=== PATIENT | female | born 1965 | race Caucasian/White ===

== ENCOUNTER 2016-08-21 16:35 | Inpatient (IN) | payer OTHER ==
[~2016-08-21] VITALS: Ht 165.1 cm; Wt 80.8 kg
[~2016-08-21 16:35] MED LIST: BENZONATATE100 MG PO; HYDROCHLOROTHIA25 MG PO; IMITREX50 MG PO; IRBESARTAN300 MG PO; NORCO1 TA2 PO; TIROSINT137 MCG PO; VITAMIN B COMPLE1 PO
[2016-08-24] VITALS (9 sets, daily range): BP systolic 153–192; BP diastolic 83–101
--- NOTE | 2016-08-24 15:08 | OPERATIVE REPORT ---
DATE OF SURGERY: 08/24/2016 SURGEON: Luis Alberto Francisco MD BOXING AND PRESSING SUPERVISOR: Ivan Roche III, MD PREOPERATIVE DIAGNOSIS: 1. Colonic polyposis POSTOPERATIVE DIAGNOSIS: 1. Colonic polyposis PROCEDURE PERFORMED: 1. Laparoscopic subtotal colectomy with ileocolostomy ANESTHESIA: General. INDICATIONS: The patient is a 50-year-old woman who has a daughter with familial adenomatous polyposis as well as a brother. The patient had a colonoscopy on , which demonstrated uncountable polyps, isolated to the right and transverse colon, with only a couple isolated ones in the rectum and a long segment of normal rectum. SURGICAL TECHNIQUE: The patient was taken to the operating room, where a general anesthetic was administered and the patient prepped and draped in the usual sterile fashion in low lithotomy position. Sequential compression devices, IV antibiotics, and a local anesthetic of 0.5% Marcaine at the incision sites were used. The patient received an orogastric tube and a Zuniga catheter. She underwent a mechanical bowel preparation prior to coming to surgery. An intraumbilical incision was made and a Veress needle used to insufflate. A 10 mm cannula was passed and visualization was obtained. A 10 mm trocar was placed in the lower midline and a 5 mm in the upper midline. Eventually, there was a 10 mm was placed in the right and another 5 mm placed to the left. The inspection was carried out, which demonstrated no evidence of neoplastic disease. The colon itself grossly looked normal. The right colon was mobilized, including the appendix, along its peritoneal reflection and moved medially. The hepatic flexure was taken down, and the omentum was then detached from the leading surface of the transverse colon and preserved with its blood supply from above. The hepatic flexure was taken down and the left colon was mobilized. Once the colon was completely mobilized, the resection was carried out. A stapler was placed across the ileocecal junction and used to divide the colon. The mesocolon was taken down starting from the right side and following across the transverse and down the descending. The Thunderbeat device was used for this entire resection. A site was selected proximal to the sacral promontory, just at the maximum reach of the dilator and stapler device. The YURI was used to divide here, and the specimen was removed from the abdominal cavity. The umbilical trocar site was enlarged a little bit to allow extraction of the specimen. The end of the terminal ileum was also pulled up. A pursestring device was placed and a 4-0 Maxon pursestring was placed. The staple line was cut away, and a 25 mm EEA anvil was tied in. The small bowel end was returned to the abdominal cavity. The midline fascia was closed using running 0 Maxon suture and the abdomen re-insufflated. Sizers were passed from below and just reached the staple line. A 25 mm EEA anastomosis was carried out without incident. Two intact donuts of tissue were extracted, and insufflation under irrigation fluid demonstrated no evidence of leakage. The entire abdomen was irrigated and suctioned clean. Hemostasis was found to be complete. Additional Marcaine was instilled, gas was evacuated, and the skin sites closed with either running or interrupted subcuticular 4-0 Vicryl sutures. Steri-Strips and dressings were applied at all sites, and the patient left in stable condition. No intraoperative complications were encountered.
[2016-08-25 02:42] VITALS: BP 136/64
[2016-08-25 06:39] VITALS: BP 111/51
--- NOTE | 2016-08-25 07:55 | Progress Note ---
Subjective General Post Operative Day 1 subtotal colectomy Pt. is sore but reports no other new problem. No flatus or stool yet, some burping but no nausea or vomiting. Physical Exam Vital Signs / I&Os Vital Signs Date Time Temp Pulse Resp B/P Pulse O2 O2 Flow FiO2 Ox Delivery Rate 08/25 0747 68 22 98 2.0 05/02 0639 98.4 71 18 111/51 97 Nasal 2.0 Cannula 05/02 0609 77 21 97 2.0 05/02 0415 71 22 97 2.0 05/02 0242 98.8 71 16 136/64 97 Nasal 2.0 Cannula 05/02 0120 72 20 96 2.0 05/01 2227 Nasal 2.0 Cannula 05/01 2220 70 157/84 05/01 2208 93 14 97 2.0 05/01 1913 100.2 76 16 183/93 97 Nasal 2.0 Cannula 05/01 1900 94 16 96 2.0 05/01 1820 98.4 82 28 153/92 96 Nasal 2.0 Cannula 05/01 1740 99.7 82 14 166/83 97 Nasal 2.0 Cannula 05/01 1711 99.0 87 14 166/88 97 Nasal 2.0 Cannula 05/01 1655 99.3 92 14 180/90 97 Nasal 2.0 Cannula 05/01 1642 90 12 97 2.0 05/01 1641 98.8 96 16 192/100 96 Nasal 2.0 Cannula 05/01 1625 98.4 96 16 180/101 96 Nasal 2.0 Cannula 05/01 1610 99.3 96 16 183/96 97 Nasal 2.0 Cannula 05/01 1550 98.4 96 15 168/76 98 Nasal 2.0 Cannula 05/01 1540 98.4 95 14 176/94 98 Nasal 2.0 Cannula 05/01 1530 98.8 90 12 168/80 97 Nasal 2.0 Cannula 05/01 1525 94 15 168/76 98 Nasal 2.0 Cannula 05/01 1520 92 15 173/80 98 Nasal 2.0 Cannula 05/01 1515 100 16 174/86 98 Nasal 2.0 Cannula 05/01 1510 94 16 201/126 98 Nasal 2.0 Cannula 05/01 1505 92 16 186/88 98 Nasal 2.0 Cannula 05/01 1500 94 18 187/81 98 Nasal 2.0 Cannula 05/01 1455 95 17 181/82 98 Nasal 2.0 Cannula 05 1450 104 11 193/99 100 Nasal 2.0 Cannula 05/ 1445 94 17 183/89 98 Nasal 2.0 Cannula 05/ 1440 94 22 183/88 98 Nasal 2.0 Cannula 05/ 1435 99 20 190/87 98 Nasal 2.0 Cannula 05/ 1430 94 14 201/85 98 Nasal 2.0 Cannula 05/ 1425 106 22 178/92 98 Nasal 2.0 Cannula 05/ 1420 97 19 193/94 98 Nasal 2.0 Cannula 05/ 1415 97 18 192/86 98 Nasal 2.0 Cannula 08/24 1410 102 19 181/88 98 Nasal 2.0 Cannula 08/24 1405 96 19 177/93 98 Nasal 3.0 Cannula 08/24 1400 103 17 177/82 100 Nasal 3.0 Cannula 08/24 1356 97.5 104 16 152/110 97 I&O 08/24 0800 05/ 1600 05/02 0000 Intake Total 1550 0 Output Total 400 1400 Balance 1150 -1400 General Appearance Alert, Oriented X3, Cooperative Lungs Clear to auscultation, Normal air movement Abdomen bowel sounds present but hypoactive, non distended, dressing intact, no erythema Assessment and Plan Problem List 1. S/P laparoscopic colectomy Plan sips PO, ambulate, inspirometry
[2016-08-25 11:09] VITALS: BP 116/76
[2016-08-25 15:30] VITALS: BP 115/64
[2016-08-25 18:56] VITALS: BP 131/53
[2016-08-25 22:33] VITALS: BP 137/60
[2016-08-26 02:30] VITALS: BP 137/658
[2016-08-26 06:12] VITALS: BP 118/65
--- NOTE | 2016-08-26 08:50 | Progress Note ---
Subjective General POD 2 laparo subtotal colectomy Pt. reports no problems, not passing stool or flatus, she is burping but no N and V. She is ambulating and taking a few sips of clear liquids. Physical Exam Vital Signs / I&Os Vital Signs Date Time Temp Pulse Resp B/P Pulse O2 O2 Flow FiO2 Ox Delivery Rate 08/26 0612 99.3 81 14 118/65 95 Room Air 08/26 0230 99.0 78 13 137/658 97 Room Air 08/25 2233 99.0 76 13 137/60 97 Room Air 08/25 2048 Room Air 08/25 1856 98.8 74 18 131/53 94 / 1530 98.6 72 18 115/64 95 Room Air 08/25 1109 98.8 71 18 116/76 96 Room Air I&O 08/25 0800 / 1600 / 0000 Intake Total 6504 021 7523 Output Total 1000 1725 1125 Balance 350 -1485 348 General Appearance Alert, Oriented X3, Cooperative Lungs Clear to auscultation Abdomen Normal bowel sounds, No tenderness, mild tympany and distension Assessment and Plan Problem List 1. S/P laparoscopic colectomy 2. Postoperative ileus Plan Will wait for flatus to advance diet, otherwise continue to ambulated and minimize narcotics.
--- NOTE | 2016-08-26 08:50 | Progress Note ---
Subjective General POD 2 laparo subtotal colectomy Pt. reports no problems, not passing stool or flatus, she is burping but no N and V. She is ambulating and taking a few sips of clear liquids. Physical Exam Vital Signs / I&Os Vital Signs Date Time Temp Pulse Resp B/P Pulse O2 O2 Flow FiO2 Ox Delivery Rate 08/26 0612 99.3 81 14 118/65 95 Room Air 08/26 0230 99.0 78 13 137/658 97 Room Air 08/25 2233 99.0 76 13 137/60 97 Room Air 08/25 2048 Room Air 08/25 1856 98.8 74 18 131/53 94 / 1530 98.6 72 18 115/64 95 Room Air 08/25 1109 98.8 71 18 116/76 96 Room Air I&O 08/25 0800 / 1600 / 0000 Intake Total 9838 907 7078 Output Total 1000 1725 1125 Balance 350 -1485 348 General Appearance Alert, Oriented X3, Cooperative Lungs Clear to auscultation Abdomen Normal bowel sounds, No tenderness, mild tympany and distension Assessment and Plan Problem List 1. S/P laparoscopic colectomy 2. Postoperative ileus Plan Will wait for flatus to advance diet, otherwise continue to ambulated and minimize narcotics.
[2016-08-26 09:02] VITALS: BP 132/63
[2016-08-26 14:46] VITALS: BP 120/64
[2016-08-26 18:46] VITALS: BP 126/72
[2016-08-26 22:10] VITALS: BP 132/75
[2016-08-27 01:48] VITALS: BP 140/78; BP 1540/78
[2016-08-27 06:39] VITALS: BP 148/78
--- NOTE | 2016-08-27 06:59 | Progress Note ---
Subjective General Pt. with vomiting last night but passed 500 cc of liquid stool this am. Physical Exam Vital Signs / I&Os Vital Signs Date Time Temp Pulse Resp B/P Pulse O2 O2 Flow FiO2 Ox Delivery Rate 08/27 0639 98.1 99 19 148/78 98 / 0148 99.0 99 16 140/78 95 08/26 2210 99.0 93 20 132/75 95 Room Air 08/26 2030 Room Air 08/26 1846 97.9 95 20 126/72 94 Room Air 08/26 1446 98.6 86 20 120/64 94 Room Air 08/26 1106 98.8 08/26 0902 92 20 132/63 94 ROOM AIR I&O 08/26 0800 08/26 1600 08/27 0000 Intake Total 1725 1775 Output Total 1788 250 600 Balance -63 -250 1175 General Appearance Alert, Oriented X3 Abdomen distended but with active bowel sounds, dressings intact Assessment and Plan Problem List 1. Postoperative ileus Plan check labs today, consider ng if vomiting persists-but hopefully passage of stool and gas per rectum will alleviate her current problems.
[2016-08-27 10:56] VITALS: BP 153/91
[2016-08-27 14:46] VITALS: BP 154/86
[2016-08-27 18:07] VITALS: BP 160/89
[2016-08-27 22:28] VITALS: BP 143/79
[2016-08-28 02:33] VITALS: BP 145/81
--- NOTE | 2016-08-28 06:30 | Progress Note ---
Subjective General 50-year-old female status post laparoscopic subtotal colectomy with ileal sigmoidostomy. Postop day #4. Required NG placement yesterday for a few hours and then DC'd. Patient states that she is passing flatus but having only small amounts of stool. No further nausea or vomiting. She is ambulatory. Minimal abdominal pain. Physical Exam Vital Signs / I&Os Vital Signs Date Time Temp Pulse Resp B/P Pulse O2 O2 Flow FiO2 Ox Delivery Rate 08/28 0233 98.2 89 18 145/81 95 Room Air 05 2228 98.4 100 18 143/79 94 Room Air 08/27 1807 98.1 110 20 160/89 96 Room Air 08/27 1602 Room Air / 1446 98.8 107 20 154/86 97 Room Air / 1056 99.0 101 20 153/91 99 Room Air 08/27 0730 Room Air 08/27 0639 98.1 99 19 148/78 98 I&O 08/27 0800 05/ 1600 08/28 0000 Intake Total 1568 1624 Output Total 1710 1375 300 Balance -142 249 -300 General Appearance Alert, Oriented X3, No acute distress Lungs Clear to auscultation Cardiovascular Regular rate and rhythm Abdomen all trocar sites are clean and dry. Patient is distended and tympanitic to percussion. Hypoactive bowel sounds. Abdomen is soft. Neurological No lateralizing signs Psych/Mental Status Mood normal LAB Results Laboratory Tests 08/27 0735 Chemistry Plasma Sodium (136 - 145 mmol/L) 138 Plasma Potassium (3.5 - 5.1 mmol/L) 3.9 Plasma Chloride (98 - 107 mmol/L) 100 CO2 (Enzymatic) (21 - 32 mmol/L) 25 BUN (7 - 18 mg/dL) 6 Creatinine (0.6 - 1.3 mg/dL) 0.9 Est GFR ( Amer) (mL/min) >60 Est GFR (Non-Af Amer) (mL/min) >60 Glucose (70 - 110 mg/dL) 165 Plasma Calcium (8.5 - 10.1 mg/dL) 8.8 Total Bilirubin (0.0 - 1.0 mg/dL) 0.8 AST (15 - 37 U/L) 11 ALT (12 - 78 U/L) 21 Alkaline Phosphatase (46 - 116 U/L) 79 Total Protein (6.4 - 8.2 g/dL) 7.6 Albumin (3.3 - 5.0 g/dL) 2.9 Hematology WBC (4.5 - 11.5 K/uL) 11.8 RBC (4.00 - 5.20 M/uL) 3.88 Hgb (12.0 - 16.0 gm/dL) 11.6 Hct (36.0 - 46.0 %) 35.2 MCV (80 - 100 fL) 91 MCH (26 - 34 pg) 30 RDW (11.6 - 14.8 %) 14.9 Neut % (Auto) (50 - 75 %) 88.7 Lymph % (Auto) (25 - 40 %) 4.9 Sullivan % (Auto) (3 - 14 %) 6.1 Eos % (Auto) (0 - 4 %) 0.2 Baso % (Auto) (0 - 2 %) 0.1 Plt Count, EDTA (150 - 400 K/uL) 310 PUBS MCHC (31 - 37 g/dL) 33 Assessment and Plan Problem List 1. S/P laparoscopic colectomy Plan Stable postop laparoscopic subtotal colectomy. 2. Postoperative ileus Plan Postop ileus. Continue present conservative management.
[2016-08-28 06:57] VITALS: BP 120/68
[2016-08-28 11:56] VITALS: BP 133/68
[2016-08-28 14:49] VITALS: BP 123/56
[2016-08-28 18:25] VITALS: BP 133/59
[2016-08-28 23:44] VITALS: BP 127/59
[2016-08-29 02:22] VITALS: BP 125/56
[2016-08-29 06:15] VITALS: BP 121/65
--- NOTE | 2016-08-29 10:47 | Progress Note ---
Subjective General 50-year-old female postop day 5 from a laparoscopically assisted subtotal colectomy with ileal sigmoidostomy. No shortness of breath. No chest pain. Patient states that she is passing a lot more flatus than she did yesterday. No nausea. Physical Exam Vital Signs / I&Os Vital Signs Date Time Temp Pulse Resp B/P Pulse O2 O2 Flow FiO2 Ox Delivery Rate 08/29 0615 99.0 87 18 121/65 95 I&O 08/28 0800 08/28 1600 08/29 0000 Intake Total 1985 0 Output Total 2024 700 955 Balance -39 -700 -955 General Appearance Oriented X3, Cooperative, No acute distress Lungs Clear to auscultation Cardiovascular Regular rate and rhythm Abdomen Normal bowel sounds, distended. Tympanitic. The bowel sounds. Slight tenderness to palpation. All trocar sites dry and dressings intact. Assessment and Plan Problem List 1. S/P laparoscopic colectomy Plan Slowly resolving postoperative ileus. Continue present management nothing by mouth. Continue ambulation. Discussed with patient. She understands and agrees.
[2016-08-29 14:34] VITALS: BP 136/77
[2016-08-29 18:11] VITALS: BP 131/62
[2016-08-29 22:19] VITALS: BP 126/56
[2016-08-30 02:48] VITALS: BP 116/50
[2016-08-30 07:05] VITALS: BP 124/54; BP 124/65
--- NOTE | 2016-08-30 10:32 | Progress Note ---
Subjective General 50-year-old female who is status post laparoscopically assisted subtotal colectomy with ileal low sigmoid ostomy. The patient states that she's passed considerable amount of flatus. Patient feels that her abdomen is less distended. Minimal abdominal discomfort. Physical Exam Vital Signs / I&Os Vital Signs Date Time Temp Pulse Resp B/P Pulse O2 O2 Flow FiO2 Ox Delivery Rate 08/30 07 98.2 52 19 124/65 100 Room Air I&O 08/29 0800 08/29 1600 08/30 0000 Intake Total 3257 1065 0 Output Total 320 1100 1825 Balance 2937 -35 -1825 General Appearance Alert, Oriented X3, No acute distress Lungs Clear to auscultation Cardiovascular Regular rate and rhythm Abdomen Normal bowel sounds, Soft, abdomen still distended and tympanitic but not as distended as yesterday. Assessment and Plan Problem List 1. S/P laparoscopic colectomy Plan Stable postoperative course. She will resolving ileus. We'll try clear liquids today.
[2016-08-30 11:15] VITALS: BP 118/76
[2016-08-30 14:38] VITALS: BP 122/66
[2016-08-30 18:55] VITALS: BP 134/75
[2016-08-30 22:33] VITALS: BP 123/65
[2016-08-31 02:22] VITALS: BP 116/67
[2016-08-31 06:11] VITALS: BP 125/70
--- NOTE | 2016-08-31 09:52 | Progress Note ---
Subjective General POD 7 post subtotal colectomy Pt. is passing stool and gas, feels a lot better. Tolerated liquids all weekend. Physical Exam Vital Signs / I&Os Vital Signs Date Time Temp Pulse Resp B/P Pulse O2 O2 Flow FiO2 Ox Delivery Rate 08/31 0611 98.2 82 18 125/70 94 Room Air 08/31 0222 98.1 78 18 116/67 95 Room Air 08/30 2233 98.2 86 18 123/65 95 Room Air 08/30 2120 Room Air 08/30 1855 98.1 82 16 134/75 95 Room Air 08/30 1438 98.4 81 19 122/66 96 Room Air 08/30 1115 98.4 85 19 118/76 94 Room Air I&O 08/30 0800 /07 1600 08/31 0000 Intake Total 1456 1382 Output Total 1100 1000 1325 Balance 356 -1000 57 General Appearance Alert, Cooperative Abdomen Normal bowel sounds, No tenderness, moderately tympanitic, not distended. Assessment and Plan Problem List 1. Postoperative ileus Plan will advance diet to boost and full liquids and if this goes OK then she can go home after dinner.
[2016-08-31 11:15] VITALS: BP 141/74
[2016-08-31 14:34] VITALS: BP 134/71
[2016-08-31 18:40] VITALS: BP 130/72
[2016-08-31 21:14] VITALS: BP 133/60
[2016-09-01 02:20] VITALS: BP 129/53
--- NOTE | 2016-09-01 07:57 | Progress Note ---
Subjective General POD 7 subtotal colectomy No complaints, loose stools, but slept over 4 hours at a time. Physical Exam Vital Signs / I&Os Vital Signs Date Time Temp Pulse Resp B/P Pulse O2 O2 Flow FiO2 Ox Delivery Rate 09/01 0327 Room Air 09/01 0220 99.0 78 18 129/53 93 Room Air 08/31 2114 98.1 91 18 133/60 94 Room Air 08/31 2000 Room Air 08/31 1840 99.3 84 18 130/72 96 Room Air 08/31 1434 98.4 86 20 134/71 95 Room Air 08/31 1115 98.2 80 18 141/74 99 Room Air I&O 08/31 0800 08/31 1600 09/01 0000 Intake Total 1827 1049 438 Output Total 906 171 7651 Balance 977 199 -1062 General Appearance Alert, Oriented X3, Cooperative, No acute distress Abdomen Normal bowel sounds, Soft, No tenderness, No guarding Assessment and Plan Problem List 1. S/P laparoscopic colectomy Plan home today
--- NOTE | 2016-09-01 07:57 | Progress Note ---
Subjective General POD 7 subtotal colectomy No complaints, loose stools, but slept over 4 hours at a time. Physical Exam Vital Signs / I&Os Vital Signs Date Time Temp Pulse Resp B/P Pulse O2 O2 Flow FiO2 Ox Delivery Rate 09/01 0327 Room Air 09/01 0220 99.0 78 18 129/53 93 Room Air 08/31 2114 98.1 91 18 133/60 94 Room Air 08/31 2000 Room Air 08/31 1840 99.3 84 18 130/72 96 Room Air 08/31 1434 98.4 86 20 134/71 95 Room Air 08/31 1115 98.2 80 18 141/74 99 Room Air I&O 08/31 0800 08/31 1600 09/01 0000 Intake Total 1827 1049 438 Output Total 788 035 7547 Balance 977 199 -1062 General Appearance Alert, Oriented X3, Cooperative, No acute distress Abdomen Normal bowel sounds, Soft, No tenderness, No guarding Assessment and Plan Problem List 1. S/P laparoscopic colectomy Plan home today
--- NOTE | 2016-09-01 07:59 | Provider's Discharge Care Plan ---
Problem, Goal, Plan Problem List 1. S/P laparoscopic colectomy
--- NOTE | 2016-09-01 07:59 | Provider's Discharge Care Plan ---
Problem, Goal, Plan Problem List 1. S/P laparoscopic colectomy
[2016-09-01 08:00] VITALS: BP 110/78
--- NOTE | 2016-09-24 15:57 | DISCHARGE SUMMARY ---
ADMIT DATE: 08/24/2016 DISCHARGE DATE: 09/01/2016 DISCHARGE DIAGNOSES: 1. Familial adenomatous polyposis 2. Postoperative ileus HOSPITAL COURSE: The patient is a 50-year-old woman who was admitted on 2016 after undergoing outpatient bowel preparation. This patient suffers from familial polyposis, but had a clear area in the rectosigmoid, and therefore requested to undergo a subtotal colectomy with ileoproctostomy. This was carried out with a laparoscopic- assisted technique on 08/24/2016 and proceeded uneventfully. Postoperatively, the patient developed an ileus with abdominal distention and slow progression of bowel function. All the usual measures were done to improve and return her bowel function, including ambulation and mixed analgesic techniques, with minimization of narcotic use. Over time, her ileus began to resolve clinically, and by day 5 she began passing increased flatus. Her diet was gradually advanced until she was able to tolerate a regular diet. She is discharged home on 09/01/2016, at which time she was tolerating p.o. and no clinical evidence of ileus.
== END 2016-09-01 11:15 | disposition home or self-care (01) | DRG 330 ==
LOC: SCU SRH 08-24 07:44 → U SRH 08-24 09:30 → ACUTE2 SRH 08-24 16:06
PROVIDERS: ADMIT Surgery
PROC: 0DTG0ZZ Resection of Left Large Intestine, Open Approach (ICD-10-PCS; principal; 2016-08-24 09:30)
PROC: 0DTF0ZZ Resection of Right Large Intestine, Open Approach (ICD-10-PCS; principal; 2016-08-24 09:30)
DX: D12.0 Benign neoplasm of cecum (principal); D12.2 Benign neoplasm of ascending colon; D12.8 Benign neoplasm of rectum; K91.89 Other postprocedural complications and disorders of digestive system; K56.7 Ileus, unspecified; Z15.09 Genetic susceptibility to other malignant neoplasm; Z80.0 Family history of malignant neoplasm of digestive organs; I10 Essential (primary) hypertension
CPT/HCPCS: 50002; 60001; 70002; 80102; 80212; 80248; 81037; 82723; 82794; 82897; 83587; 83919; 83982; 84038; 84041; 84344; 90074; 90100; 95059